=== PATIENT | female | born 1985 | race Caucasian/White ===

== ENCOUNTER 2024-08-28 17:59 | Emergency (ER) | payer OTHER ==
[~2024-08-28] VITALS: Ht 162.6 cm; Wt 66.0 kg
[2024-08-28 18:04] VITALS: O2SAT 99
[2024-08-28] MEDS: LIDOCAINE 5% PATCH TOP SCH (21:00)
[2024-08-28] MEDS: ACETAMINOPHEN 500MG TABLET PO ONE (21:00)
[2024-08-28] MEDS ORDERED: LIDO700A15 TP (22:06)
[2024-08-28] MEDS ORDERED: NAPR-1176 MT (22:06)
[2024-08-28 22:25] VITALS: BP 110/79; PULSE 86; RESP 17; TEMP 36.8; O2SAT 98
== END 2024-08-28 22:28 | disposition home or self-care (01) ==
LOC: ER 17:59
DX: R07.81 Pleurodynia (principal); Z79.899 Other long term (current) drug therapy; Z79.1 Long term (current) use of non-steroidal anti-inflammatories (NSAID); Y08.89XA Assault by other specified means, initial encounter; Y93.89 Activity, other specified; Y92.480 Sidewalk as the place of occurrence of the external cause; Y99.8 Other external cause status
CPT/HCPCS: 71045; 99283